=== PATIENT | female | born 1990 | race Two or more races ===

== ENCOUNTER 2023-12-12 21:00 | Inpatient (IN) | payer OTHER ==
[2023-12-12] MEDS: ZOLPIDEM TARTRATE 5 MG TABLET PO ONE (23:30)
[2023-12-12] MEDS ORDERED: ZOLPIDEM TARTRATE 5 MG TABLET ONE (23:37)
[2023-12-13 00:14] VITALS: BMI 33.9
[2023-12-13] MEDS ORDERED: TERBUTALINE SULFATE 1 MG/1 ML VIAL SQ ONE (02:52)
[2023-12-13] MEDS: TERBUTALINE SULFATE 1 MG/1 ML VIAL SQ ONE (02:55)
[2023-12-13] MEDS: ELECTROLYTE-148 SOLN 1,000 ML IV SCH (03:00)
[2023-12-13] MEDS: CITRIC ACID/SODIUM CITRATE 30 ML UNIT-DOSE CUP PO ONE (05:05)
[2023-12-13] MEDS ORDERED: morphine SULFATE/PF 1 MG/2 ML (2cc Syringe - QUVA) ONE (05:29)
[2023-12-13] MEDS ORDERED: FENTANYL CITRATE/PF 50 MCG/ML VIAL ONE (05:29)
[2023-12-13] MEDS ORDERED: ceFAZolin SODIUM 1 GM VIAL ONE (05:32)
[2023-12-13] MEDS ORDERED: OXYTOCIN 10 UNITS/ML VIAL ONE (05:32)
[2023-12-13] MEDS ORDERED: DEXAMETHASONE SOD PHOSPHATE 4 MG/1 ML VIAL ONE (05:32)
[2023-12-13] MEDS ORDERED: ONDANSETRON 4 MG/2 ML VIAL IVPUSH PRN (05:36)
[2023-12-13] MEDS ORDERED: LIGASURE IMPACT TP ONE (05:45)
[2023-12-13] MEDS ORDERED: AZITHROMYCIN IVPB 500 MG/250 ML BAG IVPB ONE (06:01)
[2023-12-13] MEDS ORDERED: OXYTOCIN 20 UNITS in 0.9% NS 20 UNIT/1,000 ML INFUS.BAG IV ONE (07:32)
[2023-12-13] MEDS: OXYTOCIN 20 UNITS in 0.9% NS 20 UNIT/1,000 ML INFUS.BAG IV SCH (07:45)
[2023-12-13] MEDS ORDERED: oxyCODONE HCL 5 MG TABLET PO PRN (08:05)
[2023-12-13] MEDS ORDERED: ONDANSETRON 4 MG/2 ML VIAL IVPB PRN (08:05)
[2023-12-13] MEDS: IBUPROFEN 800 MG/8 ML IJ IVPB SCH (08:17)
[2023-12-13] MEDS: ACETAMINOPHEN 1000 MG/100 ML BAG IVPB SCH (08:18)
[2023-12-13 09:12] VITALS: RESP 18
[2023-12-13] MEDS: PRENATAL VITAMINS W/ FOLIC ACID TABLET (FP) PO SCH (10:43)
[2023-12-13] MEDS: SENNOSIDES/DOCUSATE COMBO (SENNA PLUS) TABLET (UD) PO SCH (22:45)
[2023-12-14 07:32] LABS: BASO % 0.3 % (0-2.0); EOS % 0.6 % (0-4.5); HEMATOCRIT 31.5 % (32.4-45.2); HEMOGLOBIN 10.2 GM/dL (10.7-15.3); MCH 27.4 pg (25.7-33.7); MCHC 32.4 g/dl (32.0-36.0); MEAN CELL VOLUME 84.7 fl (80-96); MEAN PLT VOLUME 8.3 fl (7.5-11.1); MONO % 6.5 % (3.8-10.2); NEUT % 74.6 % (42.8-82.8); PLATELET COUNT 252 10^3/uL (134-434); RBC 3.72 M/mm3 (3.60-5.2); RDW 16.8 % (11.6-15.6); WHITE BLOOD COUNT 13.1 K/mm3 (4.0-10.0)
[2023-12-14] MEDS ORDERED: BISACODYL 10 MG SUPP.RECT RC PRN (08:05)
[2023-12-14] MEDS: IBUPROFEN 600 MG TABLET (FP) PO PRN (09:37)
[2023-12-14] MEDS: SIMETHICONE 80 MG TAB.CHEW (FP) PO PRN (17:29)
[2023-12-15] MEDS: ACETAMINOPHEN 500 MG TABLET (FP) PO PRN (20:32)
[2023-12-16 10:26] VITALS: BP 118/79; PULSE 98; TEMP 98.4
== END 2023-12-16 14:55 | disposition home or self-care (01) | DRG 540 ==
LOC: JDEL 21:00 → JLDR 22:00 → J3W 12-13 09:56
PROVIDERS: ADMIT Specialist; ATTEND Specialist
PROC: 10D00Z1 Extraction of Products of Conception, Low, Open Approach (ICD-10-PCS; principal; 2023-12-13)
PROC: 0UB70ZZ Excision of Bilateral Fallopian Tubes, Open Approach (ICD-10-PCS; 2023-12-13)
DX: O34.211 Maternal care for low transverse scar from previous cesarean delivery (principal); N85.8 Other specified noninflammatory disorders of uterus; O42.92 Full-term premature rupture of membranes, unspecified as to length of time between rupture and onset of labor; O99.824 Streptococcus B carrier state complicating childbirth; Z30.2 Encounter for sterilization; Z3A.39 39 weeks gestation of pregnancy; Z37.0 Single live birth
CPT/HCPCS: 36415; 59409; 80053; 85025; 85610; 85730; 86780; 86850; 86900; 86901; 87389; 88305-TC; 88307-TC; J0131